=== PATIENT | male | born 1980 | race Caucasian/White ===

== ENCOUNTER 2017-08-30 13:11 | Emergency (ER) | payer OTHER ==
[2017-08-30 13:47] LABS: Urine Bilirubin Negative (NEGATIVE); Urine Blood Negative /ul (NEGATIVE); Urine Ketone 15 mg/dL (NEGATIVE); Urine Nitrite Negative (NEGATIVE); Urine Protein 15 mg/dL (NEGATIVE); Urine Specific Gravity >=1.030 SP.GR. (1.005-1.030); Urine Urobilinogen Normal (NORMAL)
[2017-08-30] MEDS ORDERED: ONDANSETRON 4 MG TAB.RAPDIS PO ONE (13:48)
[2017-08-30] MEDS ORDERED: NORMAL SALINE 1,000 ML IV ONE (13:48)
[2017-08-30] MEDS ORDERED: ONDANSETRON HCL/PF 2 MG/ML VIAL ONE (13:50)
[2017-08-30] MEDS ORDERED: ONDANSETRON HCL/PF 2 MG/ML VIAL IV ONE (13:57)
[2017-08-30 14:02] LABS: Urine Appearance Slightly Cloudy; Urine Bacteria TRACE; Urine Color Dark Yellow; Urine RBC TRACE /hpf (0-5); Urine WBC 0-5 /hpf (0-5)
[2017-08-30 14:03] LABS: Hematocrit 41.1 % (42.0-52.0); Hemoglobin 14.5 gm/dL (13.5-18.0); Mean Cell Volume 95.8 fl (78-100); Mean Corpuscular Hemoglobin 33.8 pg (27-31); Mean Corpuscular Hgb Conc 35.3 g/dl (32-36); Mean Platelet Volume 8.9 fl (6.0-9.5); Neutrophil # 11.3 K/mm3 (1.3-6.0); Neutrophil % 89.5 % (42-75.0); Platelet Count 325 K/mm3 (150-450); Red Blood Count 4.29 M/mm3 (4.7-6.0); Red Cell Distribution Width 12.5 % (11.5-14.0); White Blood Count 12.6 K/mm3 (4.0-10.5)
[2017-08-30 14:03] LABS: Urine Mucus Few - 1+; Urine Other Crystal Few - 1+ /hpf
--- NOTE | 2017-08-30 14:22 | ERNOTE ---
Medical Problem HPI - General Chief Complaint: Nausea/Vomiting Time Seen by Provider: 08/30/17 13:41 Source: patient Exam Limitations: no limitations - Immun/Allergies/Home Medications Immunizations: IMMUNIZATION HX Immunizations Up to Date Yes History of Influenza Vaccine No Hx Pneumococcal Vaccination No Allergies/Adverse Reactions: Allergies No Known Allergies Allergy (Verified 08/30/17 13:31) Home Medications: HOME MEDICATIONS Verapamil HCl [Verapamil Sr] 180 mg PO DAILY 11/23/14 [Last Taken 01/20/15] Tramadol HCl [Rybix Odt] 50 mg PO Q6H PRN 04/07/16 [Last Taken Unknown] Naproxen 375 mg PO PRN PRN 08/30/17 [Last Taken Unknown] Ondansetron [Zofran Odt] 4 mg PO Q6H PRN #10 tab 08/30/17 [Last Taken Unknown] - History of Present History Narrative: Patient complains of nausea and vomiting. He states over the last 24 hours he started up perhaps 15-20 times and just complains now of burning epigastric pain with continuing nausea. Timing: intermittent Severity: moderate Review of Systems - Review of Systems Constitutional: Present: See HPI EYE: Present: no symptoms reported ENT: Present: no symptoms reported Respiratory: Present: no symptoms reported Cardiology: Present: no symptoms reported Gastrointestinal/Abdominal: Present: See HPI, nausea, vomiting, abdominal pain Genitourinary: Present: no symptoms reported Musculoskeletal: Present: no symptoms reported Skin: Present: no symptoms reported Neurological: Present: no symptoms reported Endocrine: Present: no symptoms reported Hematologic/Lymphatic: Present: no symptoms reported Psych: Present: no symptoms reported - Patient's Past Medical History Patient History - Medical: Chronic Pain, Kidney stone, UTI'S Patient History - Cardiac/Respiratory: Hypertension Patient History - Cancer: No Hx of Cancer Patient History - Surgical Procedures: No surgical history Patient History - Other: None - Social History Living Situations: home Abuse History: No History of abuse Psych History: No pertinent hx Smoking Status: Current every day smoker Alcohol Use: heavy Drug Use: none - Immunizations Immunizations Up to Date: Yes Hx Pneumococcal Vaccination: No History of Influenza Vaccine: No Physical Exam - Physical Exam General Appearance: Present: wd/wn, alert, mild distress Head Exam: Present: normal inspection, no evidence of injury Eye Exam: Normal inspection: bilateral, PERRL: bilateral Ears, Nose, Throat: Present: normal pharynx, dry mucous membranes Neck: Present: normal inspection, nontender Respiratory: Present: no respiratory distress, normal breath sounds, no accessory muscle use, chest nontender, lungs clear Cardiovascular/Chest: Present: regular rate, rhythm, no murmur, normal peripheral pulses Gastrointestinal/Abdominal: Present: normal bowel sounds, nondistended, soft, no organomegaly, tenderness - mild epigastric Rectal Exam: Present: deferred Back Exam: Present: normal inspection, normal range of motion Extremity Exam: Present: normal inspection, non-tender, no edema, normal range of motion Neurological Exam: Present: alert, oriented, normal mood/affect Skin Exam: Present: normal color, warm/dry Lymphatic Exam: Present: no adenopathy ED Progress - Results and Orders Patient's Lab Results:: I have reviewed the patient's lab results. - Vital Signs Patient's Vital Signs:: I have reviewed the patient's vital signs. Vital Signs: Vital Signs 08/30/17 13:20 Temperature 37.4 C Pulse Rate 87 Respiratory 16 Rate Blood Pressure 141/87 O2 Sat by Pulse 97 Oximetry - Progress/Reassessment Chief Complaint: Nausea/Vomiting Progress:: Improved Plan - Plan Plan: Patient states that he feels better after a liter of fluids and the Zofran IV. I suspect the elevated white count is more from the margination as his abdomen is not soft and nontender. Patient given a prescription for Zofran ODT, with the caveat of clear liquids for the next 24 hours and then advance the diet slowly. He stated that he understood and he is discharged in stable condition Departure Clinical Impression: Gastroenteritis - Departure Disposition: Home self-care Condition: Good Instructions: Viral Gastroenteritis, Adult, [id number] Referrals: Nikki Garrett FNP [Primary Care Provider] - Prescriptions: Ondansetron [Zofran Odt] 4 mg PO Q6H PRN #10 tab PRN Reason: Nausea And Vomiting
[2017-08-30 14:31] LABS: Albumin * 4.9 gm/dl (3.4-5.0); Anion Gap 21.4 mmol/L (6.8-13.8); BUN/Creatinine Ratio 14.8 (9.0-21.6); Bilirubin, Total 0.9 mg/dL (0.0-1.1); Ca. Corrected For Albumin 8.6 mg/dL (8.4-10.2); Calcium * 9.6 mg/dL (7.9-10.9); Carbon Dioxide 22.7 mmol/L (24-32.6); Potassium 4.1 mmol/L (3.4-4.6); Total Protein 8.3 gm/dL (6.2-8.2)
[2017-08-30 15:02] VITALS: BP 136/77
== END 2017-08-30 14:48 | disposition home or self-care (01) ==
LOC: ER 13:11
DX: Z87.442 Personal history of urinary calculi; I10 Essential (primary) hypertension; K52.9 Noninfective gastroenteritis and colitis, unspecified; F17.200 Nicotine dependence, unspecified, uncomplicated; Z87.440 Personal history of urinary (tract) infections
CPT/HCPCS: 36415; 80053; 81001; 85025; 96374; 99284; J2405